=== PATIENT | female | born 1995 | race African-American/Black ===

== ENCOUNTER 2020-05-26 22:05 | Emergency (ER) | payer OTHER ==
[2020-05-26 22:13] VITALS: BP 115/80; PULSE 83; TEMP 98.3; BMI 31.1
--- NOTE | 2020-05-26 22:18 | PDOC ---
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 Bleeding stopped on own, cleaned, pt squeezed to check for FBs, no foreign bodies, no erythema or warmth or systemic sx of infection. Last tetanus early May 2010. No pain meds tried. Past History - Medical History Allergies/Adverse Reactions: Allergies Allergy/AdvReac Type Severity Reaction Status Date / Time Sulfa (Sulfonamide Allergy Verified 03/31/20 20:20 Antibiotics) Anemia: Yes COPD: No - Immunization History Immunization Up to Date: No - Psycho-Social/Smoking History Smoking History: Never smoked - Substance Abuse Hx (Audit-C & DAST Scrn) How often the patient has a drink containing alcohol: Monthly or less Score: In Men: 4 or > Positive; In Women: 3 or > Positive: 1 Screen Result (Pos requires Nsg. Audit-10AR): Negative Review of Systems - Review of Systems Able to Perform ROS?: Yes Constitutional: No: Chills, Fever Respiratory: No: Shortness of Breath Cardiac (ROS): No: Chest Pain ABD/GI: No: Vomiting Musculoskeletal: Yes: Symptoms Reported (Toothpick stick in L big toe) Neurological: No: Numbness, Weakness, Unsteady Gait *Physical Exam - Vital Signs Last Vital Signs Temp Pulse Resp BP Pulse Ox 98.3 F 83 16 115/80 100 05/26/20 22:11 05/26/20 22:11 05/26/20 22:11 05/26/20 22:11 05/26/20 22:11 - Physical Exam General Appearance: Yes: Nourished, Appropriately Dressed. No: Apparent Distress HEENT: positive: Normal Voice Respiratory/Chest: negative: Respiratory Distress Musculoskeletal: positive: Normal Inspection Extremity: positive: Normal Range of Motion. negative: Tender Integumentary: positive: Normal Color, Dry, Warm, Other (Small punctate wound to bottom of L big toe without surrounding erythema or warmth or purulence or bleeding.) Neurologic: positive: obgyn nurse II-XII NML intact, Fully Oriented, Alert, Normal Mood/Affect, Normal Response, Motor Strength 5/5. 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 Bleeding stopped on own, cleaned, no foreign bodies, no erythema or warmth or systemic sx of infection. Last tetanus early May 2010. Hemodynamically stable, afebrile, neurovascularly intact. No s/s of infection necessitating antibiotics. Update tetanus. No neurovascular compromise. No e/o fx. -Tdap -Pain management: pt refuses pain meds Will discharge home with PCP f/u. Return precautions given. Pt understands all discharge instructions and all questions were answered. Discharge - Discharge Information Problems reviewed: Yes Clinical Impression/Diagnosis: Foreign body of toe of right foot Condition: Improved Disposition: HOME - Admission No - Follow up/Referral - Patient Discharge Instructions Additional Instructions: You have received tetanus for your injury. You have no signs of infection at this time. Follow-up with your primary care doctor within 1 week. Return to the Emergency Department immediately for any new or concerning symptoms such as fever, vomiting, lightheadedness, redness or warmth, pus drainage, or numbness/tingling. - Post Discharge Activity Work/Back to School Note: Back to Work
[2020-05-26] MEDS ORDERED: DIPHTH,PERTUSS(ACELL),TET 0.5 ML DISP.SYRIN IM ONE ×2 (22:19→22:26)
--- NOTE | 2020-05-26 22:30 | PDOC ---
Documentation entered by Bry Kumar SCRIBE, acting as scribe for Ben Thapa MD. Ben Thapa MD: This documentation has been prepared by the Stacy page Nirvannie, SCRIBE, under my direction and personally reviewed by me in its entirety. I confirm that the documentation accurately reflects all work, treatment, procedures, and medical decision making performed by me. Attending Attestation - Resident Resident Name: LizKandice - ED Attending Attestation I have performed the following: I have examined & evaluated the patient, The case was reviewed & discussed with the resident, I agree w/resident's findings & plan, Exceptions are as noted - HPI HPI: 05/26/20 22:28 The patient is a 25 year old female with no significant past medical history who presents to the ED after stepping on a toothpick. As per patient, there was a broken toothpick on the floor and she accidentally stepped on it causing minimal bleeding to the left great toe. She is not up to date with her tetanus. She denies any change in strength or sensation to the toe or abnormal discharge from the wound. Allergies: Sulfa - Physicial Exam PE: 05/26/20 22:30 See resident exam - Medical Decision Making 05/26/20 22:30 25 F with minor puncture wound on her toe 2/2 toothpick. - Tdap - Topical abx Discharge - Discharge Information Problems reviewed: Yes Clinical Impression/Diagnosis: Foreign body of toe of right foot Condition: Improved Disposition: HOME - Follow up/Referral Referrals: Amy William [Primary Care Provider] - - Patient Discharge Instructions Additional Instructions: You have received tetanus for your injury. You have no signs of infection at this time. Follow-up with your primary care doctor within 1 week. Return to the Emergency Department immediately for any new or concerning symptoms such as fever, vomiting, lightheadedness, redness or warmth, pus drainage, or numbness/tingling. - Post Discharge Activity Work/Back to School Note: Back to Work
== END 2020-05-26 23:35 | disposition home or self-care (01) ==
LOC: JER 22:05
PROC: 3E0234Z Introduction of Serum, Toxoid and Vaccine into Muscle, Percutaneous Approach (ICD-10-PCS; principal; 2020-05-26)
DX: S91.132A Puncture wound without foreign body of left great toe without damage to nail, initial encounter (principal); W26.8XXA Contact with other sharp object(s), not elsewhere classified, initial encounter
CPT/HCPCS: 90715; 99282-25

== ENCOUNTER 2020-10-06 02:47 | Emergency (ER) | payer SELFPAY ==
[2020-10-06 03:05] VITALS: BP 127/72; PULSE 89; TEMP 98.6; BMI 31.1
[2020-10-06] MEDS ORDERED: METHOCARBAMOL 500 MG TABLET PO ONE (03:58)
[2020-10-06] MEDS ORDERED: LIDOCAINE 5% TOPICAL PATCH TP ONE (03:58)
[2020-10-06] MEDS ORDERED: diazePAM 2 MG TABLET PO ONE (04:01)
[2020-10-06] MEDS ORDERED: METHOCARBAMOL 500 MG TABLET ONE (05:10)
[2020-10-06] MEDS ORDERED: diazePAM 5 MG TABLET ONE (05:11)
[2020-10-06] MEDS ORDERED: LIDOCAINE 5% TOPICAL PATCH ONE (05:11)
[2020-10-06] MEDS ORDERED: LIDOCAINE PATCH REMOVAL MC SCH (22:00)
== END 2020-10-06 06:40 | disposition home or self-care (01) ==
LOC: JER 02:47
DX: M62.838 Other muscle spasm (principal)
CPT/HCPCS: 99284-25

== ENCOUNTER 2021-03-07 01:47 | Emergency (ER) | payer OTHER ==
[2021-03-07] MEDS ORDERED: ONDANSETRON *ODT* 4 MG TABLET SL ONE (01:49)
[2021-03-07] MEDS ORDERED: ONDANSETRON 4 MG/2 ML VIAL IVPUSH ONE (01:51)
[2021-03-07 01:56] VITALS: PULSE 83; BMI 28.3
[2021-03-07 02:08] LABS: BASO % 0.8 % (0-2.0); EOS % 1.8 % (0-4.5); HEMATOCRIT 37.8 % (32.4-45.2); HEMOGLOBIN 12.5 GM/dL (10.7-15.3); MCH 29.4 pg (25.7-33.7); MEAN CELL VOLUME 89.2 fl (80-96); MEAN PLT VOLUME 7.7 fl (7.5-11.1); MONO % 8.5 % (3.8-10.2); NEUT % 38.9 % (42.8-82.8); PLATELET COUNT 342 K/MM3 (134-434); RBC 4.24 M/mm3 (3.60-5.2); RDW 13.3 % (11.6-15.6); WHITE BLOOD COUNT 9.4 K/mm3 (4.0-10.0)
[2021-03-07] MEDS ORDERED: ACETAMINOPHEN INJECTION 100 ML IVPB ONE ×2 (02:09→02:12)
[2021-03-07] MEDS ORDERED: ACETAMINOPHEN 1000 MG/100 ML VIAL (NON FORMULARY) IVPB ONE (02:09)
[2021-03-07 02:23] LABS: CHLORIDE 105 mmol/L (98-107); SODIUM 140 mmol/L (136-145)
[2021-03-07 02:24] LABS: CALCIUM 9.7 mg/dL (8.5-10.1)
[2021-03-07 02:25] LABS: ALBUMIN 4.3 g/dl (3.4-5.0); ANION GAP 9 MMOL/L (8-16); BLOOD UREA NITROGEN 9.8 mg/dL (7-18); CO2 26 mmol/L (21-32); GLUCOSE,RANDOM 85 mg/dL (74-106)
[2021-03-07] MEDS ORDERED: METOCLOPRAMIDE HCL INJECTION 10 MG/2 ML VIAL IVPUSH ONE (02:25)
[2021-03-07] MEDS ORDERED: METOCLOPRAMIDE HCL INJECTION 10 MG/2 ML VIAL ONE (02:27)
[2021-03-07 02:29] LABS: CREATININE 0.9 mg/dL (0.55-1.3); SGOT/AST 25 U/L (15-37); SGPT/ALT 21 U/L (13-61)
[2021-03-07 02:31] LABS: ALK PHOS 65 U/L (45-117); BILIRUBIN,TOTAL 0.3 mg/dL (0.2-1); TOT PROT 7.6 g/dl (6.4-8.2)
[2021-03-07 05:55] VITALS: BP 126/63
== END 2021-03-07 05:57 | disposition home or self-care (01) ==
LOC: JER 01:47
PROC: 3E033NZ Introduction of Analgesics, Hypnotics, Sedatives into Peripheral Vein, Percutaneous Approach (ICD-10-PCS; principal; 2021-03-07)
PROC: 3E033GC Introduction of Other Therapeutic Substance into Peripheral Vein, Percutaneous Approach (ICD-10-PCS; 2021-03-07)
DX: R51.9 Headache, unspecified (principal)
CPT/HCPCS: 36415; 70450-TC; 80053; 82550; 82553; 84484; 84703; 85025; 86850; 86900; 86901; 93005; 93010; 99285-25; J0131